=== PATIENT | male | born 1980 | race African-American/Black ===

== ENCOUNTER 2023-06-25 16:21 | Emergency (ER) | payer MEDICAID ==
[~2023-06-25] VITALS: Ht 188 cm; Wt 100.0 kg
[2023-06-25 16:33] VITALS: BP 141/78; PULSE 96; RESP 18; TEMP 98.7; O2SAT 100
== END 2023-06-25 16:53 | disposition left against medical advice (07) ==
LOC: ER 16:21
DX: S00.01XA Abrasion of scalp, initial encounter (principal); F31.9 Bipolar disorder, unspecified; X58.XXXA Exposure to other specified factors, initial encounter; Y93.89 Activity, other specified; Y92.89 Other specified places as the place of occurrence of the external cause; Y99.8 Other external cause status
CPT/HCPCS: 99283